=== PATIENT | female | born 1960 | race Caucasian/White ===

== ENCOUNTER 2016-11-23 20:22 | Emergency (ER) | payer OTHER ==
[2016-11-23 21:08] VITALS: BP 104/66; PULSE 94; TEMP 97.9; BMI 31.3
--- NOTE | 2016-11-23 22:15 | PDOC ---
History of Present Illness - History of Present Illness Initial Comments: 11/23/16 22:23 The patient is a 56 year old female, with a significant past medical history of asthma, who presents to the emergency room complaining of 4 days of cough, subjective fever, body aches, and nausea. The patient notes that everyone in her house has had the flu over the past 2 weeks. The patient states that she did not use her inhaler today. Denies chest pain, chest tightness. Allergies: none reported <Autumn Braxton - Last Filed: 11/23/16 22:23> <Deepa Leo - Last Filed: 11/23/16 23:54> - General Chief Complaint: Cold Symptoms Stated Complaint: FLU SYMP Time Seen by Provider: 11/23/16 21:51 Past History <Autumn Braxton - Last Filed: 11/23/16 22:23> - Past Medical History Asthma: Yes (SEASONAL) - Surgical History Orthopedic Surgery: Yes (BUNIONECTOMY) - Psycho/Social/Smoking Cessation Hx Suicidal Ideation: No Smoking Status: No Smoking History: Never smoked Have you smoked in the past 12 months: No Number of Cigarettes Smoked Daily: 0 Information on smoking cessation initiated: No Hx Alcohol Use: No Drug/Substance Use Hx: No Substance Use Type: None <Deepa Leo - Last Filed: 11/23/16 23:54> - Past Medical History Allergies/Adverse Reactions: Allergies Allergy/AdvReac Type Severity Reaction Status Date / Time No Known Drug Allergies Allergy Verified 11/23/16 21:08 Home Medications: Ambulatory Orders Oxybutynin Chloride [Ditropan Xl] 15 mg PO DAILY 05/18/14 Pramipexole Di-HCl [Mirapex] 0.25 mg PO HS 05/18/14 Primidone 100 mg PO HS 05/18/14 Albuterol Sulfate Inhaler - [Ventolin HFA Inhaler -] 1 - 2 inh PO Q4H PRN #1 inhaler 05/20/16 Acetaminophen [Tylenol] 650 mg PO Q6H PRN 11/23/16 Review of Systems - Review of Systems Comments:: 11/23/16 22:21 CONSTITUTIONAL: Present: fever, achiness. Absent: fever, chills, diaphoresis, generalized weakness, malaise, loss of appetite HEENT: Absent: rhinorrhea, nasal congestion, throat pain, throat swelling, difficulty swallowing, mouth swelling, ear pain, eye pain, visual Changes CARDIOVASCULAR: Absent: chest pain, syncope, palpitations, irregular heart rate, lightheadedness , peripheral edema RESPIRATORY: Present: cough, SOB, wheezing. Absent: dyspnea with exertion, orthopnea, stridor, hemoptysis GASTROINTESTINAL: Present: nausea Absent: abdominal pain, abdominal distension, vomiting, diarrhea, constipation, melena, hematochezia GENITOURINARY: Absent: dysuria, frequency, urgency, hesitancy, hematuria, flank pain, genital pain MUSCULOSKELETAL: Absent: myalgia, arthralgia, joint swelling SKIN: Absent: rash, itching, pallor HEMATOLOGIC/IMMUNOLOGIC: Absent: easy bleeding, easy bruising, lymphadenopathy, frequent infections ENDOCRINE: Absent: unexplained weight gain, unexplained weight loss, heat intolerance, cold intolerance NEUROLOGIC: Absent: headache, focal weakness or paresthesias, dizziness, unsteady gait, seizure, mental status changes, bladder or bowel incontinence PSYCHIATRIC: Absent: anxiety, depression, suicidal or homicidal ideation, hallucinations. <Autumn Braxton - Last Filed: 11/23/16 22:23> *Physical Exam - Vital Signs Last Vital Signs Temp Pulse Resp BP Pulse Ox 97.9 F 94 H 18 104/66 95 11/23/16 21:06 11/23/16 21:06 11/23/16 21:06 11/23/16 21:06 11/23/16 21:06 - Physical Exam Comments: 11/23/16 22:22 GENERAL: Well developed, well nourished. Awake and alert. In no acute distress. HEENT: Normocephalic, atraumatic. PERRLA, EOMI. No conjunctival pallor. Sclera are non- icteric. Moist mucous membranes. Oropharynx is clear. NECK: Supple. Full ROM. No JVD. Carotid pulses 2+ and symmetric, without bruits. No thyromegaly. No lymphadenopathy. CARDIOVASCULAR: Regular rate and rhythm. No murmurs, rubs, or gallops. Distal pulses are 2+ and symmetric. PULMONARY: Scant wheezing. Lungs clear to auscultation bilaterally. No rales or rhonchi. ABDOMINAL: Soft. Non-tender. Non-distended. No rebound or guarding. No organomegaly. Normoactive bowel sounds. MUSCULOSKELETAL Normal range of motion at all joints. No bony deformities or tenderness. No CVA tenderness. EXTREMITIES: No cyanosis. No clubbing. No edema. No calf tenderness. SKIN: Warm and dry. Normal capillary refill. No rashes. No jaundice. NEUROLOGICAL: Alert, awake, appropriate. Cranial nerves 2-12 intact. No deficits to light touch and temperature in face, upper extremities and lower extremities. No motor deficits in the in face, upper extremities and lower extremities. Normoreflexic in the upper and lower extremities. Normal speech. Toes are downgoing bilaterally. Gait is normal without ataxia. PSYCHIATRIC: Cooperative. Good eye contact. Appropriate mood and affect. <Autumn Braxton - Last Filed: 11/23/16 22:23> - Vital Signs Last Vital Signs Temp Pulse Resp BP Pulse Ox 97.9 F 94 H 18 104/66 95 11/23/16 21:06 11/23/16 21:06 11/23/16 21:06 11/23/16 21:06 11/23/16 21:06 <Deepa Leo - Last Filed: 11/23/16 23:54> Medical Decision Making - Medical Decision Making 11/23/16 23:50 56 yo female with coughing ,sick family members PMH asthma cxr no infiltrates influenza negative IMP bronchitis <Deepa Leo - Last Filed: 11/23/16 23:54> *DC/Admit/Observation/Transfer <Autumn Braxton - Last Filed: 11/23/16 22:23> <Deepa Leo - Last Filed: 11/23/16 23:54> Diagnosis at time of Disposition: Bronchitis Reactive airway disease Qualifiers: Asthma severity: mild intermittent Asthma complication type: uncomplicated Qualified Code(s): J45.20 - Mild intermittent asthma, uncomplicated - Discharge Dispostion Disposition: HOME Condition at time of disposition: Stable - Patient Instructions Printed Discharge Instructions: DI for Acute Bronchitis Additional Instructions: please followup with your regular doctor please machine pecan picker your prescription at your pharmacy
[2016-11-23] MEDS ORDERED: predniSONE 20 MG TABLET (UD) PO ONE (22:23)
[2016-11-23] MEDS ORDERED: ALBUTEROL SO4 2.5/IPRATROPIUM 0.5 INH SOL 3 ML VIAL.NEB. NEB ONE ×2 (22:23→22:45)
[2016-11-23] MEDS ORDERED: predniSONE 20 MG TABLET (UD) ONE (22:45)
[2016-11-23] MEDS ORDERED: AZITHROMYCIN 250 MG TABLET (FP) PO ONE (23:54)
[2016-11-24] MEDS ORDERED: AZITHROMYCIN 250 MG TABLET (FP) ONE (00:17)
== END 2016-11-24 00:24 | disposition home or self-care (01) ==
LOC: JER 20:22
PROC: 3E0F7GC Introduction of Other Therapeutic Substance into Respiratory Tract, Via Natural or Artificial Opening (ICD-10-PCS; principal; 2016-11-23)
DX: J45.20 Mild intermittent asthma, uncomplicated (principal); J40 Bronchitis, not specified as acute or chronic
CPT/HCPCS: 71020-TC; 87804; 99281-25

== ENCOUNTER 2018-06-30 06:56 | Emergency (ER) | payer BC, OTHER ==
[2018-06-30 07:17] VITALS: BP 134/61; PULSE 73; TEMP 98; BMI 34.0
--- NOTE | 2018-06-30 07:48 | PDOC ---
History of Present Illness - General Chief Complaint: Pain Stated Complaint: HAIR LOSS Time Seen by Provider: 06/30/18 07:39 History Source: Patient Exam Limitations: Clinical Condition - History of Present Illness Initial Comments: 06/30/18 07:44 Patient with history of overactive bladder on oxybutynin present with complain of hair loss of back of her head which she noticed this morning. Patient reports she noticed a bald spot on the head and needs evaluated. Patient denies any other symptoms Timing/Duration: 4-6 hours Past History - Past Medical History Allergies/Adverse Reactions: Allergies Allergy/AdvReac Type Severity Reaction Status Date / Time No Known Drug Allergies Allergy Verified 06/30/18 07:16 Home Medications: Ambulatory Orders Oxybutynin Chloride [Ditropan Xl] 15 mg PO DAILY 05/18/14 Pramipexole Di-HCl [Mirapex] 0.25 mg PO HS 05/18/14 Primidone 100 mg PO HS 05/18/14 Albuterol Sulfate Inhaler - [Ventolin HFA Inhaler -] 1 - 2 inh PO Q4H PRN #1 inhaler 05/20/16 Acetaminophen [Tylenol] 650 mg PO Q6H PRN 11/23/16 Azithromycin [Zithromax -] 250 mg PO UTDICT #6 tab 11/24/16 Methylprednisolone [Medrol Dose Tim] 4 mg PO ASDIR #21 tablet 11/24/16 Asthma: Yes (SEASONAL) COPD: No CHF: No DVT: No Psychiatric Problems: Yes (anxiety) Other medical history: denies - Surgical History Orthopedic Surgery: Yes (BUNIONECTOMY) - Suicide/Smoking/Psychosocial Hx Smoking Status: No Smoking History: Never smoked Have you smoked in the past 12 months: No Number of Cigarettes Smoked Daily: 0 Information on smoking cessation initiated: No Hx Alcohol Use: No Drug/Substance Use Hx: No Substance Use Type: None Review of Systems - Review of Systems Able to Perform ROS?: Yes Is the patient limited [place] proficient: No Constitutional: Yes: Other (crying). No: Chills, Fever HEENTM: Yes: See HPI, Other (hair loss). No: Eye Pain, Blurred Vision, Tearing , Recent change in vision, Double Vision, Cataracts, Ear Pain, Ocular Prothesis , Ear Discharge, Nose Pain, Nose Congestion, Tinnitus, Nose Bleeding, Hearing Loss, Throat Pain, Throat Swelling, Mouth Pain, Dental Problems, Difficulty Swallowing, Mouth Swelling Respiratory: No: Symptoms reported Cardiac (ROS): No: Symptoms Reported ABD/GI: No: Symptoms Reported Musculoskeletal: No: Symptoms Reported Integumentary: Yes: See HPI, Change in Hair/Nails (hair loss to back of head) All Other Systems: Reviewed and Negative *Physical Exam - Vital Signs Last Vital Signs Temp Pulse Resp BP Pulse Ox 98 F 73 17 134/61 99 06/30/18 07:14 06/30/18 07:14 06/30/18 07:14 06/30/18 07:14 06/30/18 07:14 - Physical Exam Comments: 06/30/18 07:49 GENERAL: Well developed, well nourished. Awake and alert. No acute distress. HEENT: Normocephalic, atraumatic. PERRLA, EOMI. No conjunctival pallor. Sclera are non- icteric. Moist mucous membranes. Oropharynx is clear. NECK: Supple. Full ROM. No JVD. Carotid pulses 2+ and symmetric, without bruits. No thyromegaly. No lymphadenopathy. CARDIOVASCULAR: Regular rate and rhythm. No murmurs, rubs, or gallops. Distal pulses are 2+ and symmetric. PULMONARY: No evidence of respiratory distress. Lungs clear to auscultation bilaterally. No wheezing, rales or rhonchi. ABDOMINAL: Soft. Non-tender. Non-distended. No rebound or guarding. No organomegaly. Normoactive bowel sounds. SKIN: 4cm circular area of alopecia to occiput of head Warm and dry. NEUROLOGICAL: Alert, awake, appropriate. PSYCHIATRIC: Cooperative. Good eye contact. Appropriate mood and affect. General Appearance: Yes: Nourished, Appropriately Dressed. No: Apparent Distress Medical Decision Making - Medical Decision Making 06/30/18 07:45 Patient with no sig Past medical history present with complain of hair loss today back of the head. Exams significant for bald spot to occiput of the head. Patient is stable for discharge with dermatology follow-up *DC/Admit/Observation/Transfer Diagnosis at time of Disposition: Alopecia - Discharge Dispostion Disposition: HOME Condition at time of disposition: Stable Decision to Admit order: No - Referrals Referrals: Josesito Schaffer MD [Primary Care Provider] - Landen Rubin MD [Non Staff, Medical] - - Patient Instructions Printed Discharge Instructions: DI Alopecia [place]reat[place] Additional Instructions: Follow up with preferred dermatology as soon as possible to evaluate for hair loss - Post Discharge Activity
--- NOTE | 2018-06-30 08:01 | PDOC ---
*Physical Exam - Vital Signs Last Vital Signs Temp Pulse Resp BP Pulse Ox 98 F 73 17 134/61 99 06/30/18 07:14 06/30/18 07:14 06/30/18 07:14 06/30/18 07:14 06/30/18 07:14 Medical Decision Making - Medical Decision Making 06/30/18 07:59 Pt presents to the ER due to an area of hair loss Pt referred to her PMD/Corporate Compliance Manager Agree with plan by KINGSTON Mccartney *DC/Admit/Observation/Transfer Diagnosis at time of Disposition: Alopecia - Discharge Dispostion Disposition: HOME Condition at time of disposition: Stable - Referrals Referrals: Josesito Schaffer MD [Primary Care Provider] - Landen Rubin MD [Non Staff, Medical] - - Patient Instructions Printed Discharge Instructions: DI Alopecia [place]reata Additional Instructions: Follow up with preferred dermatology as soon as possible to evaluate for hair loss - Post Discharge Activity
== END 2018-06-30 07:55 | disposition home or self-care (01) ==
LOC: JER 06:56
DX: L65.9 Nonscarring hair loss, unspecified (principal); J30.2 Other seasonal allergic rhinitis; F41.9 Anxiety disorder, unspecified
CPT/HCPCS: 99281-25

== ENCOUNTER 2018-10-06 08:17 | Day surgery (SDC) | payer BC ==
[2018-10-05 10:39] VITALS: BMI 33.1
[2018-10-06] MEDS ORDERED: MIDAZOLAM HCL 2 MG/2 ML SINGLE DOSE VIAL ONE (10:03)
[2018-10-06] MEDS ORDERED: BUPIVACAINE HCL/PF 0.5% (5MG/ML) 10 ML VIAL ONE (10:46)
--- NOTE | 2018-10-06 10:46 | HP ---
[facility]ellite [facility] - Chief Complaint Chief Complaint: left knee pain - Past Medical History Allergies/Adverse Reactions: Allergies Allergy/AdvReac Type Severity Reaction Status Date / Time No Known Drug Allergies Allergy Verified 10/06/18 08:58 - Current Medications Current Medications: Home Medications Medication Instructions Recorded Pramipexole Di-HCl [Mirapex] 1 mg PO HS 05/18/14 Primidone 150 mg PO HS 05/18/14 Atorvastatin Ca [Lipitor] 10 mg PO HS 10/05/18 Oxybutynin Chloride [Ditropan Xl] 10 mg PO DAILY 10/05/18 Rizatriptan Benzoate [Rizatriptan] 10 mg PO PRN PRN 10/05/18 Oxycodone HCl/Acetaminophen 1 tab PO Q6H #20 tablet MDD 4 10/06/18 [Percocet 5-325 mg Tablet] Satellite Physical Exam - Physical Examination Vital Signs: Vital Signs Period Temp Pulse Resp BP Sys/Pastor Pulse Ox Last 24 Hr 97.9 F 85 18 104/70 95 General Appearance: Well Nourished, Well Developed, Alert & Oriented x3 ENT: Clear Lung: Normal air movement Heart: Regular rate & rhythm Extremities: Other (left knee- +swelling, + ttp, dec rom, + mcmurrays, nvi MRI + mt) Neurological: Intact, Alert, Oriented Satellite Impression/Plan - Impression/Plan Impression: left knee internal derangement Operative Procedure: left knee arthroscopy Date to be Performed: 10/06/18
[2018-10-06] MEDS ORDERED: ceFAZolin SODIUM 1 GM VIAL IVPB ONE (11:08)
--- NOTE | 2018-10-06 11:34 | OP ---
Operative Note - Note: Operative Date: 10/06/18 ([facility]) Pre-Operative Diagnosis: left knee internal derangement Operation: left knee arthroscopy with PLM, debridement chondroplasty Post-Operative Diagnosis: Same as Pre-op Surgeon: Demario Fulton Anesthesiologist/MORTGAGE LOAN REVIEWER: Franklyn Díaz Anesthesia: General, Local Specimens Removed: shavings Estimated Blood Loss (mls): 5 Operative Report Dictated: Yes
[2018-10-06] MEDS ORDERED: ONDANSETRON 4 MG/2 ML VIAL IVPUSH PRN (11:42)
[2018-10-06] MEDS ORDERED: oxyCODONE HCL 5 MG TABLET PO PRN ×2 (11:42)
[2018-10-06] MEDS ORDERED: LACTATED RINGERS SOLUTION 1,000 ML IV SCH (11:45)
[2018-10-06 14:05] VITALS: TEMP 98
[2018-10-06 17:02] VITALS: BP 103/57; PULSE 85
--- NOTE | 2018-10-06 23:47 | OP ---
DATE OF OPERATION: 10/06/2018 PREOPERATIVE DIAGNOSIS: Left knee pain, medial and lateral meniscus tear and osteoarthritis. POSTOPERATIVE DIAGNOSIS: Left knee medial and lateral meniscus tear and osteoarthritis of the patellofemoral joint. DRAINS: None. COMPLICATIONS: None. PROCEDURE: Left knee arthroscopy, partial lateral meniscectomy and debridement chondroplasty. BLOOD LOSS: Minimal. BLOOD GIVEN: None. FLUID REPLACEMENT: 500 mL Plasmalyte. INDICATION: This patient is a 58-year-old female with a preoperative diagnosis of left knee pain, possible meniscus tear, and osteoarthritis. After understanding the potential risks, complications, alternatives, benefits to surgery versus nonsurgical treatment, the patient elected to undergo this procedure. DESCRIPTION OF PROCEDURE; The patient was brought to the operating room, peripheral IV placed, IV sedation given, 2 g of IV Ancef was given. LMA anesthesia was induced. Ample Webril is placed around the left thigh. The left lower extremity is prepped and draped in sterile fashion. Elevated, exsanguinated with Esmarch bandage and tourniquet inflated to 275 mmHg. Ample padding was throughout the left thigh. A superior medial outflow portal was established with a 15 scalpel blade. A lateral portal was established and arthroscope was introduced to the joint under direct visualization using a spinal needle. A medial portal was established. A diagnostic arthroscopy was performed. In the medial compartment, patient was seen to have a small amount of fraying at the junction with the posterior horn and body of the medial meniscus. This was gently debrided with the curved shaver. There was grade 1 chondromalacia changes on the medial femoral condyle, medial tibial plateau, both of which were debrided. Next our attention turned to the intracondylar notch. The ACL looked good, had the appropriate tension. Next our attention turned to the lateral compartment. Patient was seen to have a very small tear at he junction of the body and posterior horn of the lateral meniscus. There was a delamination component, too. This was debrided with a curved shaver. Photographs taken before and after. There was no osteoarthritis of the lateral compartment whatsoever. Next our attention was turned to the patellofemoral joint. The patient had excessive Hoffa's fat pad, this was debrided. Once this was done, I was able to directly visualize the patellofemoral joint. The patient had 2 areas of significant osteoarthritis and the femoral trochlea were in the size of a quarter, one the size of a dime, and the area in between in the femoral trochlea. This was gently debrided. There was also a small area about the size of a quarter of grade 3 chondromalacia changes with a very small central focus of grade 4 chondromalacia change on the undersurface of the patella; this was debrided with a curved shaver as well. The area was copiously irrigated and washed out. I put the knee through a range of motion, two kissing lesions that articulate, therefore this is a cause of pain in the patellofemoral compartment. All instrumentation was removed. Excess saline and debris removed. The arthroscopy port was closed with 3-0 nylon sutures. The area was then injected, an intraarticular injection with 20 mL of 0.5% Marcaine was done. The area was then washed and dried, covered with Xeroform gauze, 4x4 gauze, Webril, and Saúl bandage. The tourniquet was then taken down after total tourniquet time of 20 minutes. There were no complications during the case. The patient tolerated the procedure well, was brought to the ambulatory recovery in stable condition on October 06, 2018, left knee arthroscopy, partial lateral meniscectomy and debridement chondroplasty. SILVIA GAINES M.D. [id number]
--- NOTE | 2018-10-07 12:58 | PATH ---
Surgical Pathology Report Patient Name: REGGIE MACK [facility]. Rec. #: [id number] /Age/Gender: 1960 (Age: 58) / F Account: [id number] Location: [facility] Taken: 10/06/2018 Received: 10/06/2018 Reported: 10/07/2018 Physicians: Demario Fulton M.D. Specimen(s) Received LEFT KNEE SHAVINGS Clinical History Left knee tear Final Diagnosis KNEE SHAVINGS, LEFT, ARTHROSCOPY: FRAGMENTS OF CARTILAGE, DENSE FIBROCONNECTIVE TISSUE, ADIPOSE TISSUE, AND SYNOVIUM. Electronically Signed Diana Guillen M.D. Gross Description Received in formalin, labeled "left knee shavings" is a 4.0 x 3.5 x 0.3 cm. aggregate of mock-yellow soft tissue fragments. A manufacturer's representative portion is submitted in one cassette. 10/06/201810/06/2018
== END 2018-10-06 14:45 | disposition home or self-care (01) ==
LOC: JASU-SURG 08:17
PROVIDERS: ATTEND Orthopaedic Surgery
PROC: 0SBD4ZZ Excision of Left Knee Joint, Percutaneous Endoscopic Approach (ICD-10-PCS; 2018-10-06)
PROC: 0SBD4ZZ Excision of Left Knee Joint, Percutaneous Endoscopic Approach (ICD-10-PCS; principal; 2018-10-06 09:30)
DX: S83.242A Other tear of medial meniscus, current injury, left knee, initial encounter (principal); S83.282A Other tear of lateral meniscus, current injury, left knee, initial encounter; X58.XXXA Exposure to other specified factors, initial encounter; Y93.9 Activity, unspecified; Y92.9 Unspecified place or not applicable; Y99.9 Unspecified external cause status
CPT/HCPCS: 88304-TC; 94760; 97116-GP

== ENCOUNTER 2020-06-06 17:07 | Emergency (ER) | payer BC ==
--- NOTE | 2020-06-06 17:14 | TELE ---
HPI Do you have fever,cough or shortness of breath?: No - General Reason For Visit: COVID History Source: Patient Past History - Medical History Allergies/Adverse Reactions: Allergies Allergy/AdvReac Type Severity Reaction Status Date / Time No Known Drug Allergies Allergy Verified 10/06/18 08:58 Home Medications: Ambulatory Orders Pramipexole Di-HCl [Mirapex] 1 mg PO HS 05/18/14 Primidone 150 mg PO HS 05/18/14 Atorvastatin Ca [Lipitor] 10 mg PO HS 10/05/18 Oxybutynin Chloride [Ditropan Xl] 10 mg PO DAILY 10/05/18 Rizatriptan Benzoate [Rizatriptan] 10 mg PO PRN PRN 10/05/18 Hydrocodone/Acetaminophen [Hydrocodone-Acetamin 5-325 mg] 1 - 2 tab PO TID PRN #30 tablet MDD 6 10/06/18 Oxycodone HCl/Acetaminophen [Percocet 5-325 mg Tablet] 1 tab PO Q6H #20 tablet MDD 4 10/06/18 Anemia: No Asthma: Yes (SEASONAL) Cancer: No Cardiac Disorders: No CVA: No COPD: No CHF: No DVT: No Dementia: No Diabetes: No GI Disorders: No Disorders: No HTN: No Hypercholesterolemia: Yes Liver Disease: No Psychiatric Problems: Yes (anxiety) Seizures: No Thyroid Disease: No - Surgical History Orthopedic Surgery: Yes (BUNIONECTOMY-right) - Psycho-Social/Smoking History Smoking Status: No Smoking History: Never smoked Have you smoked in the past 12 months: No Number of Cigarettes Smoked Daily: 0 Review of Systems - Review of Systems Constitutional: No: Fever Respiratory: No: Cough *Physical Exam - Physical Exam Respiratory/Chest: negative: Respiratory Distress Discharge Diagnosis at time of Disposition: Encounter for laboratory testing for COVID-19 virus - Referrals Follow-up Referral(s): Josr Hinojosa MD [Primary Care Provider] - - Patient Instructions - Discharge Disposition: HOME Condition at time of Disposition: Stable
--- OUTSIDE RECORDS SUMMARY | 2020-06-06 17:15 | XMS ---
:1960 Author Organization [facility] Support Name Relationship Address Phone YPS Unavailable [address] [place] [address] ALFA MACK DAUGHTER [address] [address] Re-disclosure Warning The records that you are about to access may contain information from federally- assisted alcohol or drug abuse programs. If such information is present, then the following federally mandated warning applies: This information has been disclosed to you from records protected by federal confidentiality rules (42 CFR part 2). The federal rules prohibit you from making any further disclosure of this information unless further disclosure is expressly permitted by the written consent of the person to whom it pertains or as otherwise permitted by 42 CFR part 2. A general authorization for the release of medical or other information is NOT sufficient for this purpose. The Federal rules restrict any use of the information to criminally investigate or prosecute any alcohol or drug abuse patient.The records that you are about to access may contain highly sensitive health information, the redisclosure of which is protected by Article 27-F of the [facility] Public Health law. If you continue you may haveaccess to information: Regarding HIV / AIDS; Provided by facilities licensed or operated by the [facility] Office of Mental Health; or Provided by the [facility] Office for People With Developmental Disabilities. If such information is present, then the following [facility] mandated warning applies: This information has been disclosed to you from confidential records which are protected by state law. State law prohibits you from making any further disclosure of this information without the specific written consent of the person to whom it pertains, or as otherwise permitted by law. Any unauthorized further disclosure in violation of state law may result in a fine or usp sentence or both. A general authorization for the release of medical or other information is NOT sufficient authorization for further disclosure. Insurance Providers Payer name Policy type / Policy ID Covered Covered democrat's Policy Plan Coverage type democrat ID relationship to [place] Information [employer] [facility] [id number] SP [id number] [facility] [id number] SP [id number]
== END 2020-06-06 17:14 | disposition home or self-care (01) ==
LOC: JVIRT 17:07
DX: Z11.59 Encounter for screening for other viral diseases (principal)
CPT/HCPCS: C9803; Q3014-GT; U0003

== ENCOUNTER 2022-01-21 07:22 | Emergency (ER) | payer BC ==
[2022-01-21 07:50] VITALS: BP 107/71; PULSE 76; TEMP 98; BMI 34.0
== END 2022-01-21 09:12 | disposition home or self-care (01) ==
LOC: JERFT 07:22 → JER 07:22 → JERFT 09:12
PROC: 0H96XZZ Drainage of Back Skin, External Approach (ICD-10-PCS; principal; 2022-01-21)
DX: L02.212 Cutaneous abscess of back [any part, except buttock and flank] (principal)
CPT/HCPCS: 87070; 87076; 87205; 99282-25

== ENCOUNTER 2022-09-19 04:19 | Day surgery (SDC) | payer BC ==
[2022-09-17 09:08] VITALS: BMI 36.9
[2022-09-19] MEDS ORDERED: ONDANSETRON 4 MG/2 ML VIAL IVPUSH PRN ×2 (11:11→13:40)
[2022-09-19] MEDS ORDERED: oxyCODONE HCL 5 MG TABLET PO PRN ×3 (11:11→13:40)
[2022-09-19] MEDS ORDERED: LACTATED RINGERS SOLUTION 1,000 ML IV SCH ×2 (11:15→13:45)
[2022-09-19] MEDS ORDERED: LIDOCAINE HCL 1%, 10 MG/ML (20ML VIAL) ONE (11:54)
[2022-09-19] MEDS ORDERED: BUPIVACAINE HCL/PF 0.5% (5MG/ML) 10 ML VIAL ONE (11:54)
[2022-09-19] MEDS ORDERED: DEXAMETHASONE SOD PHOSPHATE 4 MG/1 ML VIAL ONE (12:15)
[2022-09-19] MEDS ORDERED: MIDAZOLAM HCL 2 MG/2 ML SINGLE DOSE VIAL ONE (12:15)
[2022-09-19] MEDS ORDERED: ONDANSETRON 4 MG/2 ML VIAL ONE (12:15)
[2022-09-19] MEDS ORDERED: PROPOFOL 20 ML ONE (12:15)
[2022-09-19] MEDS ORDERED: LIDOCAINE HCL/PF 2% SDV 5ML VIAL ONE (12:15)
[2022-09-19] MEDS ORDERED: ceFAZolin SODIUM 1 GM VIAL ONE (12:55)
[2022-09-19] MEDS ORDERED: ceFAZolin SODIUM 1 GM VIAL IVPB ONE (12:56)
[2022-09-19] MEDS ORDERED: BUPIVACAINE HCL/PF 0.5% (5MG/ML) 10 ML VIAL IJ ONE ×3 (13:05)
[2022-09-19] MEDS ORDERED: LIDOCAINE HCL 1%, 10 MG/ML (20ML VIAL) INF ONE ×3 (13:05)
[2022-09-19 14:44] VITALS: RESP 18
[2022-09-19 16:08] VITALS: BP 115/60; PULSE 72; TEMP 97.7
== END 2022-09-19 15:30 | disposition home or self-care (01) ==
LOC: JASU-SURG 04:19
PROVIDERS: ATTEND Surgery
PROC: 0HB6XZZ Excision of Back Skin, External Approach (ICD-10-PCS; principal; 2022-09-19 11:30)
DX: L72.3 Sebaceous cyst (principal)
CPT/HCPCS: 88304-TC; 94760

== ENCOUNTER 2022-10-28 07:38 | Emergency (ER) | payer BC ==
[2022-10-28 07:48] VITALS: BP 120/77; PULSE 95; RESP 18; TEMP 97.8; BMI 33.2
[2022-10-28] MEDS ORDERED: LIDOCAINE 5% TOPICAL PATCH TP ONE (08:06)
[2022-10-28] MEDS ORDERED: KETOROLAC TROMETHAMINE 30 MG/1 ML VIAL IM ONE (08:06)
[2022-10-28] MEDS ORDERED: diazePAM 5 MG TABLET PO ONE (08:06)
[2022-10-28] MEDS ORDERED: DEXAMETHASONE 4 MG TABLET (FP) PO ONE (08:06)
[2022-10-28] MEDS ORDERED: LIDOCAINE 5% TOPICAL PATCH ONE (08:11)
[2022-10-28] MEDS ORDERED: KETOROLAC TROMETHAMINE 30 MG/1 ML VIAL ONE (08:11)
[2022-10-28] MEDS ORDERED: DEXAMETHASONE SOD PHOSPHATE 10 MG/1 ML VIAL ONE (08:11)
[2022-10-28] MEDS ORDERED: diazePAM 5 MG TABLET ONE (08:11)
[2022-10-28] MEDS ORDERED: LIDOCAINE PATCH REMOVAL MC SCH (22:00)
== END 2022-10-28 09:45 | disposition home or self-care (01) ==
LOC: JERFT 07:38 → JER 07:38 → JERFT 09:45
PROC: 3E0233Z Introduction of Anti-inflammatory into Muscle, Percutaneous Approach (ICD-10-PCS; principal; 2022-10-28)
DX: S33.5XXA Sprain of ligaments of lumbar spine, initial encounter (principal); X50.0XXA Overexertion from strenuous movement or load, initial encounter
CPT/HCPCS: 99284-25

== ENCOUNTER 2023-08-06 07:06 | Emergency (ER) | payer BC ==
[2023-08-06 07:22] VITALS: TEMP 97.6; BMI 35.2
[2023-08-06] MEDS ORDERED: ACETAMINOPHEN 1000 MG/100 ML BAG IVPB ONE (08:38)
[2023-08-06] MEDS ORDERED: METOCLOPRAMIDE HCL INJECTION 10 MG/2 ML VIAL IVPB ONE (08:38)
[2023-08-06] MEDS ORDERED: SODIUM CHLORIDE 0.9% 500 ML INFUS.BAG IV ONE (08:38)
[2023-08-06] MEDS ORDERED: ACETAMINOPHEN INJECTION 100 ML IVPB ONE (08:46)
[2023-08-06] MEDS ORDERED: METOCLOPRAMIDE HCL INJECTION 10 MG/2 ML VIAL ONE (08:46)
[2023-08-06 09:07] LABS: VENOUS BASE EXCESS -0.9 mmol/L (-2-2); VENOUS O2 SATURATION 75.5 % (70-80); VENOUS PCO2 37.7 mmHg (38-52); VENOUS PH 7.409 (7.310-7.410)
[2023-08-06 09:14] LABS: INR 1.06 (0.83-1.09); PROTHROMBIN TIME (PATIENT) 12.3 SEC (9.7-13.0)
[2023-08-06 09:17] LABS: ACTIVATED PTT 31.1 SECONDS (25.2-36.5)
[2023-08-06] MEDS ORDERED: ALBUTEROL SO4 2.5/IPRATROPIUM 0.5 INH SOL 3 ML VIAL.NEB. NEB ONE ×2 (09:17→09:23)
[2023-08-06] MEDS ORDERED: LORATADINE 10 MG TABLET PO ONE (09:17)
[2023-08-06 09:23] LABS: BASO % 0.3 % (0-2.0); EOS % 2.8 % (0-4.5); HEMATOCRIT 43.3 % (32.4-45.2); HEMOGLOBIN 14.7 GM/dL (10.7-15.3); LYMPH % 24.5 % (8-40); MCH 29.9 pg (25.7-33.7); MEAN PLT VOLUME 8.5 fl (7.5-11.1); MONO % 9.7 % (3.8-10.2); NEUT % 62.7 % (42.8-82.8); PLATELET COUNT 247 10^3/uL (134-434); RBC 4.93 M/mm3 (3.60-5.2); RDW 13.8 % (11.6-15.6); WHITE BLOOD COUNT 7.5 K/mm3 (4.0-10.0)
[2023-08-06] MEDS ORDERED: LORATADINE 10 MG TABLET ONE (09:23)
[2023-08-06 09:40] LABS: POTASSIUM 4.1 mmol/L (3.5-5.1)
[2023-08-06 09:42] LABS: ALBUMIN 3.9 g/dl (3.4-5.0); CALCIUM 8.5 mg/dL (8.5-10.1); MAGNESIUM 2.3 mg/dL (1.8-2.4)
[2023-08-06 09:46] LABS: CREATININE 0.8 mg/dL (0.55-1.3)
[2023-08-06 09:47] LABS: BILIRUBIN,TOTAL 0.5 mg/dL (0.2-1); TOT PROT 7.1 g/dl (6.4-8.2)
[2023-08-06 11:11] VITALS: BP 110/68; PULSE 65; RESP 16
== END 2023-08-06 11:11 | disposition home or self-care (01) ==
LOC: JER 07:06
PROC: 3E033NZ Introduction of Analgesics, Hypnotics, Sedatives into Peripheral Vein, Percutaneous Approach (ICD-10-PCS; principal; 2023-08-06)
PROC: 3E033GC Introduction of Other Therapeutic Substance into Peripheral Vein, Percutaneous Approach (ICD-10-PCS; 2023-08-06)
PROC: 3E0F7GC Introduction of Other Therapeutic Substance into Respiratory Tract, Via Natural or Artificial Opening (ICD-10-PCS; 2023-08-06)
DX: R51.9 Headache, unspecified (principal); R05.9 Cough, unspecified; R06.02 Shortness of breath; R11.10 Vomiting, unspecified; B34.9 Viral infection, unspecified; Z20.822 Contact with and (suspected) exposure to COVID-19
CPT/HCPCS: 0241U-QW; 36415; 71046-TC-FY; 80053; 82803; 83735; 84484; 85025; 85610; 85730; 93005; 93010; 99285-25

== ENCOUNTER 2023-09-09 05:46 | Emergency (ER) | payer BC ==
[2023-09-09 05:54] VITALS: RESP 18; BMI 35.4
[2023-09-09] MEDS ORDERED: KETOROLAC TROMETHAMINE 15 MG/ML VIAL IM ONE (06:16)
[2023-09-09] MEDS ORDERED: METHOCARBAMOL 750 MG TAB PO ONE (06:20)
[2023-09-09] MEDS ORDERED: ACETAMINOPHEN 500 MG TABLET (FP) PO ONE (06:21)
[2023-09-09] MEDS ORDERED: LIDOCAINE 5% TOPICAL PATCH TP ONE (06:21)
[2023-09-09] MEDS ORDERED: METHOCARBAMOL 500 MG TABLET ONE (06:25)
[2023-09-09] MEDS ORDERED: ACETAMINOPHEN 325 MG TABLET (FP) ONE (06:25)
[2023-09-09] MEDS ORDERED: KETOROLAC TROMETHAMINE 15 MG/ML VIAL ONE (06:26)
[2023-09-09 08:27] VITALS: BP 108/67; PULSE 88; TEMP 97
[2023-09-09] MEDS ORDERED: LIDOCAINE PATCH REMOVAL MC SCH (22:00)
== END 2023-09-09 08:27 | disposition home or self-care (01) ==
LOC: JER 05:46
PROC: 3E0233Z Introduction of Anti-inflammatory into Muscle, Percutaneous Approach (ICD-10-PCS; principal; 2023-09-09)
DX: M54.2 Cervicalgia (principal); S16.1XXA Strain of muscle, fascia and tendon at neck level, initial encounter; X58.XXXA Exposure to other specified factors, initial encounter
CPT/HCPCS: 93005; 93010; 99284-25

== ENCOUNTER 2024-04-26 07:42 | Emergency (ER) | payer BC ==
[2024-04-26 07:56] VITALS: BMI 34.7
[2024-04-26] MEDS ORDERED: ACETAMINOPHEN 325 MG TABLET (FP) ONE (08:35)
[2024-04-26] MEDS ORDERED: ONDANSETRON *ODT* 4 MG TABLET ONE (08:35)
[2024-04-26] MEDS: ACETAMINOPHEN 325 MG TABLET (FP) PO ONE (08:57)
[2024-04-26] MEDS: ONDANSETRON 4 MG TABLET PO ONE (08:58)
[2024-04-26 09:02] LABS: URINE APPEARANCE CLEAR; URINE BILIRUBIN NEGATIVE (NEGATIVE); URINE COLOR YELLOW; URINE GLUCOSE (UA) NEGATIVE (NEGATIVE); URINE KETONE NEGATIVE (NEGATIVE); URINE LEUK ESTERASE NEGATIVE (NEGATIVE); URINE NITRITE NEGATIVE (NEGATIVE); URINE PROTEIN NEGATIVE (NEGATIVE)
[2024-04-26 09:14] LABS: BASO % 0.4 % (0-2.0); EOS % 1.9 % (0-4.5); HEMOGLOBIN 14.6 GM/dL (10.7-15.3); LYMPH % 21.2 % (8-40); MEAN CELL VOLUME 88.1 fl (80-96); MEAN PLT VOLUME 8.1 fl (7.5-11.1); MONO % 6.1 % (3.8-10.2); NEUT % 70.4 % (42.8-82.8); PLATELET COUNT 251 10^3/uL (134-434); RBC 4.89 M/mm3 (3.60-5.2); RDW 14.2 % (11.6-15.6); WHITE BLOOD COUNT 7.3 K/mm3 (4.0-10.0)
[2024-04-26] MEDS: SODIUM CHLORIDE 1,000 ML IV ONE (09:31)
[2024-04-26 09:38] LABS: POTASSIUM 4.1 mmol/L (3.5-5.1)
[2024-04-26 09:41] LABS: ALBUMIN 3.8 g/dl (3.4-5.0); BLOOD UREA NITROGEN 17.9 mg/dL (7-18); CALCIUM 8.7 mg/dL (8.5-10.1)
[2024-04-26 09:45] LABS: CREATININE 0.8 mg/dL (0.55-1.3)
[2024-04-26 09:46] LABS: BILIRUBIN,TOTAL 0.6 mg/dL (0.2-1); TOT PROT 6.7 g/dl (6.4-8.2)
[2024-04-26] MEDS ORDERED: METOCLOPRAMIDE HCL 10 MG TABLET (FP) PO ONE (13:10)
[2024-04-26] MEDS: METOCLOPRAMIDE HCL 10 MG TABLET (FP) PO ONE (13:23)
[2024-04-26 14:38] LABS: HIV INTERPRETATION NEGATIVE (NEGATIVE)
[2024-04-26 14:59] VITALS: BP 135/66; PULSE 74; RESP 16; TEMP 98
== END 2024-04-26 15:00 | disposition home or self-care (01) ==
LOC: JER 07:42
PROC: 3E0337Z Introduction of Electrolytic and Water Balance Substance into Peripheral Vein, Percutaneous Approach (ICD-10-PCS; principal; 2024-04-26)
DX: R42 Dizziness and giddiness (principal); R51.9 Headache, unspecified; R53.1 Weakness; R11.0 Nausea; M79.10 Myalgia, unspecified site; R50.9 Fever, unspecified; Z20.822 Contact with and (suspected) exposure to COVID-19
CPT/HCPCS: 0241U-QW; 36415; 71046-TC-FY; 80053; 81003; 84484; 85025; 86803; 87389; 93005; 93010; 99285-25